=== PATIENT | male | born 1990 | race Caucasian/White ===

== ENCOUNTER 2017-09-11 22:39 | Emergency (ER) | payer SELFPAY ==
[2017-09-11 22:49] VITALS: BP 145/88; PULSE 105; RESP 20; TEMP 98; O2SAT 97
--- NOTE | 2017-09-11 22:58 | C.PDOC ---
History Of Present Illness brought in by police for possible drug use. Pt denies it. Pleasant , cooperative, Denies any suicidal or homicidal ideation. Speaking in complete sentences Time Seen by Provider: 09/11/17 22:55 Chief Complaint (Nursing): Substance Abuse History Per: Patient History/Exam Limitations: no limitations Onset/Duration Of Symptoms: Hrs Current Symptoms Are (Timing): Gone Modifying Factor(s): None Severity: None Associated Symptoms: denies: Anger, Anxiety, Depression Involuntary Hold By: None Recent travel outside of the [place]: No Additional History Per: Patient Past Medical History Reviewed: Historical Data, Nursing Documentation, Vital Signs Vital Signs: Last Vital Signs Temp 98 F 09/11/17 22:45 Pulse 105 H 09/11/17 22:45 Resp 20 09/11/17 22:45 BP 145/88 09/11/17 22:45 Pulse Ox 97 09/11/17 22:45 Family History: States: No Known Family Hx - Social History Hx Alcohol Use: No Hx Substance Use: Yes - Immunization History Hx Tetanus Toxoid Vaccination: No Hx Influenza Vaccination: No Hx Pneumococcal Vaccination: No Review Of Systems Constitutional: Negative for: Fever, Chills Cardiovascular: Negative for: Chest Pain Respiratory: Negative for: Shortness of Breath Gastrointestinal: Negative for: Abdominal Pain Neurological: Negative for: Weakness Psych: Negative for: Depression, Suicidal ideation Physical Exam - Physical Exam Appears: Non-toxic, No Acute Distress Skin: Warm, Dry Head: Normacephalic Eye(s): bilateral: Normal Inspection Oral Mucosa: Moist Chest: Symmetrical Cardiovascular: Rhythm Regular Respiratory: No Rales, No Rhonchi, No Wheezing Gastrointestinal/Abdominal: Soft, No Tenderness Extremity: Normal ROM Neurological/Psych: Oriented x3 Gait: Steady ED Course And Treatment O2 Sat by Pulse Oximetry: 97 Pulse Ox Interpretation: Normal Disposition Counseled Patient/Family Regarding: Diagnosis, Need For Followup - Disposition Referrals: [facility] [Outside] Disposition: HOME/ ROUTINE Disposition Time: 22:56 Condition: FAIR Forms: [facility] ([place]ian), General Discharge Instructions - Clinical Impression Clinical Impression: Drug abuse
== END 2017-09-11 23:30 | disposition home or self-care (01) ==
LOC: C.ER 22:39
DX: F19.10 Other psychoactive substance abuse, uncomplicated (principal)